=== PATIENT | female | born 1975 | race Two or more races ===

== ENCOUNTER 2021-09-12 21:04 | Emergency (ER) | payer MEDICAID ==
[~2021-09-12] VITALS: Ht 170.2 cm; Wt 76.8 kg
[2021-09-12 21:05] VITALS: BP 142/71
[2021-09-12 21:40] LABS: BASOPHILS # (AUTO) 0.1 X10'3 (0-0.2); BASOPHILS % (AUTO) 0.5 % (0-1); EOSINOPHILS # (AUTO) 0.5 X10'3 (0-0.9); EOSINOPHILS % (AUTO) 3.8 % (0-6); HEMATOCRIT 27.4 % (35.0-45.0); HEMOGLOBIN 8.6 g/dl (12.0-16.0); LYMPHOCYTES # (AUTO) 2.5 X10'3 (1.1-4.8); LYMPHOCYTES % (AUTO) 21.4 % (21-51); MEAN CORPUSCULAR HEMOGLOBIN 21.9 PG (27.0-31.0); MEAN CORPUSCULAR HGB CONC 31.4 g/dL (33.0-36.5); MEAN CORPUSCULAR VOLUME 69.9 FL (78-98); MEAN PLATELET VOLUME 6.9 FL (7.4-10.4); MONOCYTES % (AUTO) 8.6 % (2-12); NEUTROPHILS # (AUTO) 7.7 X10'3 (1.8-7.7); NEUTROPHILS % (AUTO) 65.7 % (42-75); PLATELET COUNT 564 X10'3 (140-440); RED BLOOD COUNT 3.92 X10'6 (4.20-5.60); RED CELL DISTRIBUTION WIDTH 17.3 % (11.5-14.5); WHITE BLOOD COUNT 11.8 X10'3 (4.5-11.0)
[2021-09-12] MEDS ORDERED: mag hydrox/Alum hydrox/simeth 30ml oral suspension PO ONE (21:40)
[2021-09-12] MEDS ORDERED: LIDOcaine Viscous 15ml cup MM ONE (21:40)
[2021-09-12 21:51] LABS: ALANINE AMINOTRANSFERASE 24 U/L (12-78); ALBUMIN 3.4 G/DL (3.4-5.0); ALBUMIN/GLOBULIN RATIO 0.9 (1.1-1.5); ALKALINE PHOSPHATASE 77 IU/L (46-116); ANION GAP 9 (8-16); ASPARTATE AMINO TRANSFERASE 15 U/L (10-37); BILIRUBIN,TOTAL 0.2 MG/DL (0.1-1.0); BLOOD UREA NITROGEN 14 MG/DL (7-18); BUN/CREATININE RATIO 19.7 (6.6-38.0); CHLORIDE 104 MMOL/L (99-107); CREATININE 0.71 MG/DL (0.40-0.90); GLUCOSE 110 MG/DL (70-104); POTASSIUM 3.4 MMOL/L (3.5-5.1); SODIUM 139 MMOL/L (135-145); TOTAL CARBON DIOXIDE 26.5 MMOL/L (24-32); TOTAL PROTEIN 7.4 G/DL (6.4-8.2); eGFR 89 ML/MIN
[2021-09-12 21:59] LABS: MAGNESIUM 1.8 MG/DL (1.5-2.4)
[2021-09-12 22:12] LABS: ANISOCYTOSIS 1+; MICROCYTOSIS 2+; PLATELET ESTIMATE INCREASED
[2021-09-12 22:13] LABS: ELLIPTOCYTES FEW; POLYCHROMASIA FEW
[2021-09-12] MEDS ORDERED: OMEP40CA21 PO (22:13)
== END 2021-09-12 22:38 | disposition home or self-care (01) ==
LOC: ER 21:05
DX: R07.89 Other chest pain (principal); R06.02 Shortness of breath; R05.9 Cough, unspecified; F12.90 Cannabis use, unspecified, uncomplicated
CPT/HCPCS: 36415; 71045; 80053; 83735; 83880; 84484; 85008; 85025; 93005; 99285

== ENCOUNTER 2023-04-07 10:29 | Emergency (ER) | payer BC, OTHER ==
[~2023-04-07] VITALS: Ht 170.2 cm; Wt 76.4 kg
[2023-04-07 10:34] VITALS: TEMP 97.9
--- NOTE | 2023-04-07 10:41 | NUR ---
PT. STATES SHE IS ALLERGIC TO "SOMETHING" BUT DOESN'T KNOW WHAT IT IS THAT MAKES HER TONGUE SWELL AND HARD TO BREATH.
[2023-04-07] MEDS ORDERED: ondansetron/PF 4mg/2ml inj IV ONE (10:50)
[2023-04-07] MEDS ORDERED: normal saline 1000ML IV soln IVB ONE (10:50)
[2023-04-07] MEDS ORDERED: famotidine/PF 10 mg/ml inj IV ONE (10:50)
[2023-04-07 11:06] LABS: BASOPHILS # (AUTO) 0.1 X10'3 (0-0.2); BASOPHILS % (AUTO) 1.2 % (0-1); EOSINOPHILS # (AUTO) 0.6 X10'3 (0-0.9); EOSINOPHILS % (AUTO) 6.4 % (0-6); HEMATOCRIT 30.3 % (35.0-45.0); HEMOGLOBIN 9.5 g/dl (12.0-16.0); LYMPHOCYTES % (AUTO) 20.1 % (21-51); MEAN CORPUSCULAR HEMOGLOBIN 22.2 PG (27.0-31.0); MEAN CORPUSCULAR HGB CONC 31.4 g/dL (33.0-36.5); MEAN CORPUSCULAR VOLUME 70.8 FL (78-98); MEAN PLATELET VOLUME 7.3 FL (7.4-10.4); MONOCYTES # (AUTO) 0.5 X10'3 (0-0.9); MONOCYTES % (AUTO) 5.2 % (2-12); NEUTROPHILS # (AUTO) 6.6 X10'3 (1.8-7.7); NEUTROPHILS % (AUTO) 67.1 % (42-75); PLATELET COUNT 457 X10'3 (140-440); RED BLOOD COUNT 4.29 X10'6 (4.20-5.60); RED CELL DISTRIBUTION WIDTH 17.6 % (11.5-14.5); WHITE BLOOD COUNT 9.8 X10'3 (4.5-11.0)
[2023-04-07 11:30] LABS: ALANINE AMINOTRANSFERASE 18 U/L (12-78); ALBUMIN 3.6 G/DL (3.4-5.0); ALBUMIN/GLOBULIN RATIO 0.9 (1.1-1.5); ALKALINE PHOSPHATASE 74 IU/L (46-116); ANION GAP 10 (8-16); ASPARTATE AMINO TRANSFERASE 13 U/L (10-37); BILIRUBIN,TOTAL 0.2 MG/DL (0.1-1.0); BLOOD UREA NITROGEN 13 MG/DL (7-18); BUN/CREATININE RATIO 18.6 (10.0-20.0); CALCIUM 9.5 MG/DL (8.5-10.1); CHLORIDE 105 MMOL/L (99-107); GLUCOSE 125 MG/DL (70-104); POTASSIUM 4.2 MMOL/L (3.5-5.1); SODIUM 136 MMOL/L (135-145); TOTAL CARBON DIOXIDE 21.2 MMOL/L (24-32); TOTAL PROTEIN 7.8 G/DL (6.4-8.2); eCRCL 99 ML/MIN; eGFR 90 ML/MIN
[2023-04-07 11:31] LABS: ETHANOL < 10 MG/DL (<10); LIPASE 120 U/L (73-393); PRO BRAIN NATRIURETIC PEPTIDE 111 PG/ML (0-125)
[2023-04-07 12:23] LABS: URINE HCG NEGATIVE (NEG)
[2023-04-07 12:27] VITALS: BP 107/68; PULSE 58; O2SAT 100
[2023-04-07 12:37] LABS: BILIRUBIN,URINE NEGATIVE (Neg); CLARITY,URINE CLOUDY (Clear); COLOR,URINE YELLOW (Yellow); GLUCOSE, URINE NEGATIVE (Neg); KETONES,URINE NEGATIVE (Neg); LEUKOCYTE ESTERASE ,URINE NEGATIVE (Neg); NITRITES, URINE NEGATIVE (Neg); OCCULT BLOOD,URINE MODERATE (Neg); PROTEIN,URINE TRACE mg/dl (Neg); UROBILINOGEN,URINE 0.2 E.U/dL (0.2-1.0)
[2023-04-07 12:40] LABS: UA COLLECTION TYPE CLN CATCH MIDSTREAM
[2023-04-07 12:42] LABS: URINE AMPHETAMINE SCREEN NEGATIVE (Neg); URINE BARBITUATE SCREEN NEGATIVE (Neg); URINE BENZODIAZEPINES SCREEN NEGATIVE (Neg); URINE CANNABINOID SCREEN NEGATIVE (Neg); URINE COCAINE SCREEN NEGATIVE (Neg); URINE METHADONE SCREEN NEGATIVE (Neg); URINE OPIATE SCREEN NEGATIVE (Neg); URINE PHENCYCLIDINE SCREEN NEGATIVE (Neg)
[2023-04-07] MEDS ORDERED: ONDA4TAB12 PO (12:54)
[2023-04-07] MEDS ORDERED: ketorolac trometh. 30mg/ml inj. IV ONE (12:55)
[2023-04-07 12:57] VITALS: RESP 17
[2023-04-07 13:04] LABS: SQUAMOUS EPITHELIAL CELL,UR MODERATE /LPF (FEW)
[2023-04-07 13:05] LABS: BACTERIA,URINE 1+ /HPF (Neg); HYALINE CASTS 0-3 /LPF (NEGATIVE); MUCUS STRANDS NONE SEEN /LPF (Neg); WBC,URINE 0-4 /HPF (0-4)
== END 2023-04-07 13:14 | disposition home or self-care (01) ==
LOC: ER 10:29
DX: A08.4 Viral intestinal infection, unspecified (principal)
CPT/HCPCS: 36415; 70450; 71045; 80053; 80305; 80320; 81001; 81025; 83690; 83880; 84484; 85025; 93005; 96361; 96374; 96375; 99285; J1885; J2405; J3490; J7030

== ENCOUNTER 2023-12-26 21:16 | Emergency (ER) | payer BC, OTHER ==
[~2023-12-26] VITALS: Ht 170.2 cm; Wt 79.5 kg
[~2023-12-26 21:16] MED LIST: ONDA4TAB12 PO
[2023-12-26] MEDS: ondansetron/PF 4mg/2ml inj IV ONE (23:36)
[2023-12-26] MEDS: morphine 4 MG/ML inj SYRINge IV ONE (23:36)
[2023-12-26 23:44] LABS: BASOPHILS % (AUTO) 0.1 % (0-1); EOSINOPHILS % (AUTO) 0.1 % (0-6); HEMOGLOBIN 12.7 g/dl (12.0-16.0); LYMPHOCYTES # (AUTO) 1.9 X10'3 (1.1-4.8); LYMPHOCYTES % (AUTO) 10.4 % (21-51); MEAN CORPUSCULAR HEMOGLOBIN 29.1 PG (27.0-31.0); MEAN CORPUSCULAR HGB CONC 33.4 g/dL (33.0-36.5); MEAN CORPUSCULAR VOLUME 87.1 FL (78-98); MEAN PLATELET VOLUME 7.1 FL (7.4-10.4); MONOCYTES % (AUTO) 5.6 % (2-12); NEUTROPHILS # (AUTO) 15.7 X10'3 (1.8-7.7); NEUTROPHILS % (AUTO) 83.8 % (42-75); PLATELET COUNT 379 X10'3 (140-440); RED BLOOD COUNT 4.36 X10'6 (4.20-5.60); RED CELL DISTRIBUTION WIDTH 13.6 % (11.5-14.5); WHITE BLOOD COUNT 18.8 X10'3 (4.5-11.0)
[2023-12-26 23:56] LABS: ALANINE AMINOTRANSFERASE 22 U/L (12-78); ALBUMIN 3.8 G/DL (3.4-5.0); ALBUMIN/GLOBULIN RATIO 0.9 (1.1-1.5); ALKALINE PHOSPHATASE 83 IU/L (46-116); ANION GAP 11 (8-16); ASPARTATE AMINO TRANSFERASE 25 U/L (10-37); BILIRUBIN,TOTAL 0.9 MG/DL (0.1-1.0); BLOOD UREA NITROGEN 17 MG/DL (7-18); BUN/CREATININE RATIO 23.9 (10.0-20.0); CALCIUM 9.7 MG/DL (8.5-10.1); CHLORIDE 104 MMOL/L (99-107); CREATININE 0.71 MG/DL (0.40-0.90); GLUCOSE 102 MG/DL (70-104); LIPASE 36 U/L (16-77); POTASSIUM 4.1 MMOL/L (3.5-5.1); SODIUM 138 MMOL/L (135-145); TOTAL PROTEIN 8.2 G/DL (6.4-8.2); eCRCL 96 ML/MIN; eGFR 89 ML/MIN
[2023-12-27] MEDS ORDERED: iohexol 300mg/ml 100ml inj. ONE (00:02)
[2023-12-27] MEDS: CefTRIAXone/D5W-Rocephin 1gm 50 ML IV ONE (00:05)
[2023-12-27] MEDS: morphine 4 MG/ML inj SYRINge IV ONE (00:05)
[2023-12-27] MEDS: normal saline 1000ml 1,000 ML IV ONE (00:06)
[2023-12-27 00:22] LABS: BILIRUBIN,URINE SMALL (Neg); CLARITY,URINE CLOUDY (Clear); COLOR,URINE YELLOW (Yellow); GLUCOSE, URINE NEGATIVE (Neg); KETONES,URINE >=80 mg/dl (Neg); LEUKOCYTE ESTERASE ,URINE TRACE (Neg); NITRITES, URINE NEGATIVE (Neg); OCCULT BLOOD,URINE LARGE (Neg); PH,URINE 6.5 (4.8-8.0); PROTEIN,URINE TRACE mg/dl (Neg); URINE HCG NEGATIVE (NEG); UROBILINOGEN,URINE 0.2 E.U/dL (0.2-1.0)
[2023-12-27 00:27] LABS: UA COLLECTION TYPE CLN CATCH MIDSTREAM
[2023-12-27 00:28] LABS: SQUAMOUS EPITHELIAL CELL,UR MANY /LPF (FEW)
[2023-12-27 00:29] LABS: WBC,URINE 30-50 /HPF (0-4)
[2023-12-27 00:30] LABS: BACTERIA,URINE 3+ /HPF (Neg); RBC,URINE 20-50 /HPF (0-2)
[2023-12-27 00:31] LABS: MUCUS STRANDS MANY /LPF (Neg)
[2023-12-27] MEDS: acetaminophen 1,000mg/100ml IV 100 ML IV ONE (00:48)
[2023-12-27] MEDS: ondansetron/PF 4mg/2ml inj IV ONE (00:48)
[2023-12-27] MEDS ORDERED: PANT-47 PO (01:27)
[2023-12-27 01:30] VITALS: BP 131/72; PULSE 60; RESP 16; TEMP 98.3; O2SAT 98
[2023-12-27] MEDS: LIDOcaine 2% Viscous 15ml cup MM ONE (01:41)
[2023-12-27] MEDS: mag hydrox/Alum hydrox/simeth 30ml oral suspension PO ONE (01:41)
[2023-12-27] MEDS: pantoprazole 40mg Tablet.DR PO ONE (01:41)
[2023-12-27] MEDS: famotidine/PF 10 mg/ml inj IV ONE (01:41)
== END 2023-12-27 02:07 | disposition home or self-care (01) ==
LOC: ER 21:17
DX: K29.00 Acute gastritis without bleeding (principal); Z79.899 Other long term (current) drug therapy; F12.90 Cannabis use, unspecified, uncomplicated
CPT/HCPCS: 36415; 71260; 74177; 80053; 81001; 81025; 83690; 84145; 84484; 85025; 96365; 96375; 99285; J0131; J0696; J2270; J2405; J3490; J7030; Q9967; 81003